=== PATIENT | female | born 1975 | race American Indian/Alaskan Native ===

== ENCOUNTER 2017-09-12 11:24 | Emergency (ER) | payer SELFPAY ==
[2017-09-12 11:39] VITALS: BP 132/87
--- NOTE | 2017-09-12 12:28 | XRay Report ---
LEFT KNEE, 3 views: History: Left knee pain. The bony architecture is intact without evidence of fracture or dislocation. No significant soft tissue abnormality is seen. IMPRESSION: Normal left knee.
--- NOTE | 2017-09-12 14:23 | Emergency Department Report ---
ED Lower Extremity HPI - General Chief Complaint: Extremity Injury, Lower Stated Complaint: LEFT KNEE PAIN Time Seen by Provider: 09/12/17 13:20 Source: patient Mode of arrival: Ambulatory Limitations: No Limitations - History of Present Illness Initial Comments: pt is a 42 y/o aaf with hx left knee pain who presents for left knee pain and swelling, x 3 days after wearing heels to function on tuesday, pt denies fall injury or trauma, pt states pain at 5/10 aching and swelling , pt remains ambulatory with pain. MD Complaint: knee injury Onset/Timin -: days(s) Injury: Knee: Left Type of Injury: other (denies injury event ) Place: street/outdoors Severity: moderate Severity scale (0 -10): 4 Improves With: nothing, other (nothing tried ) Worsens With: weight bearing, movement, palpation Context: walking Associated Symptoms: swelling, able to partially bear weight. denies: numbness , tingling - Related Data Previous Rx's Medication Instructions Recorded Last Taken Type Cyclobenzaprine [Flexeril] 10 mg PO BID PRN #20 tablet 09/12/17 Unknown Rx Naproxen [Naprosyn] 500 mg PO BID PRN #30 tablet 09/12/17 Unknown Rx Allergies Allergy/AdvReac Type Severity Reaction Status Date / Time No Known Allergies Allergy Unverified 09/12/17 11:35 ED Review of Systems ROS: Stated complaint: LEFT KNEE PAIN Other details as noted in HPI Constitutional: denies: chills, fever Eyes: denies: eye pain, eye discharge, vision change ENT: denies: ear pain, throat pain Respiratory: denies: cough, shortness of breath, wheezing Cardiovascular: denies: chest pain, palpitations Endocrine: no symptoms reported Gastrointestinal: denies: abdominal pain, nausea, diarrhea Genitourinary: denies: urgency, dysuria, discharge Musculoskeletal: joint swelling, arthralgia. denies: myalgia Skin: denies: rash, lesions Neurological: denies: headache, weakness, paresthesias Psychiatric: denies: anxiety, depression Hematological/Lymphatic: denies: easy bleeding, easy bruising ED Past Medical Hx - Past Medical History Previous Medical History?: Yes Hx of Cancer: Yes - Surgical History Past Surgical History?: Yes Additional Surgical History: hiatal hernia surgery, cervix - Social History Smoking Status: Current Every Day Smoker Substance Use Type: Alcohol, Prescribed - Medications Home Medications: Home Medications Medication Instructions Recorded Confirmed Last Taken Type Cyclobenzaprine [Flexeril] 10 mg PO BID PRN #20 tablet 09/12/17 Unknown Rx Naproxen [Naprosyn] 500 mg PO BID PRN #30 tablet 09/12/17 Unknown Rx ED Physical Exam - General Limitations: No Limitations General appearance: alert, in no apparent distress - Head Head exam: Present: atraumatic, normocephalic - Eye Eye exam: Present: normal appearance, PERRL, EOMI Pupils: Present: normal accommodation - ENT ENT exam: Present: mucous membranes moist - Neck Neck exam: Present: normal inspection - Respiratory Respiratory exam: Present: normal lung sounds bilaterally. Absent: respiratory distress - Cardiovascular Cardiovascular Exam: Present: regular rate, normal rhythm. Absent: systolic murmur, diastolic murmur, rubs, gallop - GI/Abdominal GI/Abdominal exam: Present: soft, normal bowel sounds - Rectal Rectal exam: Present: deferred - Extremities Exam Extremities exam: Present: tenderness (left knee anterior ), normal capillary refill, joint swelling. Absent: pedal edema, calf tenderness - Expanded Lower Extremity Exam Left Knee exam: Present: normal inspection, tenderness, swelling, pain w/ pronation/ supination, full knee extension. Absent: full ROM (pain with flexion ), abrasion, laceration, ecchymosis, deformity, crepidus, dislocation, erythema, effusion, posterior draw sign, pain/laxity with valgus, pain/laxity with varus Lower Leg exam: Present: normal inspection, full ROM Ankle exam: Present: normal inspection, full ROM Foot/Toe exam: Present: normal inspection, full ROM Neuro vascular tendon exam: Present: no vascular compromise. Absent: pulse deficit, abnormal cap refill, motor deficit, sensory deficit, tendon deficit, extremity cold to touch, pallor, abnormal 2-point discrimination, decreased fine /light touch, foot drop, peroneal nerve deficit, significant pain with passive ROM of distal joint Gait: Positive: observed and normal ED Course Vital Signs 09/12/17 11:35 Temperature 98.3 F Pulse Rate 95 H Respiratory 24 Rate Blood Pressure 132/87 O2 Sat by Pulse 100 Oximetry ED Lower Extremity MDM - Radiology Data Radiology results: report reviewed, image reviewed normal left knee no fracture no soft tissue abnormalities - Medical Decision Making pt is a 42 y/o aaf with hx left knee pain who presents for left knee pain and swelling, x 3 days after wearing heels to function on tuesday, pt denies fall injury or trauma, pt states pain at 5/10 aching and swelling , pt remains ambulatory with pain. knee exam no drawer no deformity no bursitis mild effusion sub patella xray normal rom intact with full knee extension pt is ambulatory to baseline, plan: aquiles, rice, nsaids and muscle relaxant tp will follow up with primary care in 2-3 days pt verbalized agreement and understanding with discharge plan. Critical care attestation.: If time is entered above; I have spent that time in minutes in the direct care of this critically ill patient, excluding procedure time. ED Disposition Clinical Impression: Knee strain Qualifiers: Encounter type: initial encounter Laterality: left Qualified Code(s): S86.912A - Strain of unspecified muscle(s) and tendon(s) at lower leg level, left leg, initial encounter Disposition: TO HOME OR SELFCARE Is pt being admited?: No Does the pt Need Aspirin: No Condition: Good Instructions: Knee Pain (ED), Knee Exercises (GEN) Prescriptions: Cyclobenzaprine [Flexeril] 10 mg PO BID PRN #20 tablet PRN Reason: Muscle Spasm Naproxen [Naprosyn] 500 mg PO BID PRN #30 tablet PRN Reason: Pain Referrals: NAKIA ROTHMAN MD [Staff Physician] - 3-5 Days Forms: Work/School Release Form(ED) Time of Disposition: 14:30
[2017-09-12] MEDS ORDERED: ULTRAM PO ONE (14:31)
== END 2017-09-12 14:54 | disposition home or self-care (01) ==
LOC: ED 11:24
DX: S76.912A Strain of unspecified muscles, fascia and tendons at thigh level, left thigh, initial encounter (principal); F17.200 Nicotine dependence, unspecified, uncomplicated; X58.XXXA Exposure to other specified factors, initial encounter; Y93.89 Activity, other specified; Y92.89 Other specified places as the place of occurrence of the external cause; Y99.8 Other external cause status
CPT/HCPCS: 99284

== ENCOUNTER 2019-10-12 13:16 | Emergency (ER) | payer SELFPAY ==
--- NOTE | 2019-10-12 16:11 | XRay Report ---
CHEST 2 VIEWS INDICATION / CLINICAL INFORMATION: Chest Pain. COMPARISON: None available. FINDINGS: SUPPORT DEVICES: None. HEART / MEDIASTINUM: No significant abnormality. LUNGS / PLEURA: No significant pulmonary or pleural abnormality. No pneumothorax. ADDITIONAL FINDINGS: No significant additional findings. IMPRESSION: 1. No acute findings. Signer Name: Wolfgang Noriega MD Signed: 10/12/2019 4:07 PM Workstation Name: [id number]
[2019-10-12 16:39] LABS: Basophils # (Auto) 0.1 K/mm3 (0.0-0.1); Basophils % (Auto) 0.8 % (0.0-1.8); Eosinophils # (Auto) 0.1 K/mm3 (0.0-0.4); Hematocrit 39.3 % (30.3-42.9); Hemoglobin 13.4 gm/dl (10.1-14.3); Lymphocytes # (Auto) 2.8 K/mm3 (1.2-5.4); Lymphocytes % (Auto) 42.4 % (13.4-35.0); Mean Corpuscular HGB Conc 34 % (30-34); Mean Corpuscular Volume 92 fl (79-97); Monocytes # (Auto) 0.5 K/mm3 (0.0-0.8); Monocytes % (Auto) 6.8 % (0.0-7.3); Platelet Count 280 K/mm3 (140-440); Red Blood Count 4.28 M/mm3 (3.65-5.03); Red Cell Distribution Width 13.3 % (13.2-15.2)
[2019-10-12 17:04] LABS: BUN/Creatinine Ratio 18; Blood Urea Nitrogen 11 mg/dL (7-17); Hemolysis Index 13
--- NOTE | 2019-10-12 19:40 | Emergency Department Report ---
ED Chest Pain HPI - General Chief Complaint: Chest Pain Stated Complaint: CHEST PAIN/SEVERE HEADACHE Time Seen by Provider: 10/12/19 19:26 Source: patient Mode of arrival: Ambulatory Limitations: No Limitations - History of Present Illness Initial Comments: 44-year-old -[place] female to the emergency for chest pain/tightness to the left side that radiated to her left shoulder and neck. Patient reported some nausea with shortness of breath. Patient reports that the chest pain as intermittently. Patient states that the chest pain that started on Tuesday. Patient also complains of a migraine. Patient states that she suffers from migraines and has taken her migraine medication on Tuesday but did not taken on Tuesday. Patient also reports that she's been really stressed out at work. Patient feels that she's had an anxiety attack but is not getting any better. Patient denies any suicidal or homicidal ideation. Patient does report she feels,low and depressed. Patient does have a primary care provider but has not followed up since February 2019. Patient has a past medical history of lower back pain migraines. Patient reports that she was taking amitriptyline for her anxiety but has only taken her amitriptyline 50 mg 2 days ago has ran out. Denies any chest pain at this moment. Reports her migraines is 7 out of 8. MD Complaint: chest pain, other (migraine) Onset/Timin Pain Location: substernal Pain Radiation: LUE, neck Severity: moderate Severity scale (0 -10): 7 (Migraine) Quality: heaviness Consistency: intermittent Worsens With: nothing Treatments Prior to Arrival: none - Related Data On Oral Contraceptives: No Previous Rx's Medication Instructions Recorded Last Taken Type Cyclobenzaprine [Flexeril] 10 mg PO BID PRN #20 tablet 09/12/17 Unknown Rx Naproxen [Naprosyn] 500 mg PO BID PRN #30 tablet 09/12/17 Unknown Rx Allergies Allergy/AdvReac Type Severity Reaction Status Date / Time No Known Allergies Allergy Unverified 09/12/17 11:35 Heart Score - HEART Score History: Slightly suspicious EKG: Normal Age: 45-65 Risk factors: 1-2 risk factors Troponin: < normal limit HEART Score: 2 ED Review of Systems ROS: Stated complaint: CHEST PAIN/SEVERE HEADACHE Other details as noted in HPI ED Past Medical Hx - Past Medical History Previous Medical History?: Yes Hx Seizures: Yes - Surgical History Past Surgical History?: No Additional Surgical History: hiatal hernia surgery, cervix - Social History Smoking Status: Never Smoker Substance Use Type: Alcohol - Medications Home Medications: Home Medications Medication Instructions Recorded Confirmed Last Taken Type Cyclobenzaprine [Flexeril] 10 mg PO BID PRN #20 tablet 09/12/17 Unknown Rx Naproxen [Naprosyn] 500 mg PO BID PRN #30 tablet 09/12/17 Unknown Rx ED Physical Exam - General Limitations: No Limitations General appearance: alert, in no apparent distress - Head Head exam: Present: atraumatic, normocephalic - Eye Eye exam: Present: normal appearance - ENT ENT exam: Present: mucous membranes moist - Neck Neck exam: Present: normal inspection - Respiratory Respiratory exam: Present: normal lung sounds bilaterally. Absent: respiratory distress - Cardiovascular Cardiovascular Exam: Present: regular rate, normal rhythm. Absent: systolic murmur, diastolic murmur, rubs, gallop - GI/Abdominal GI/Abdominal exam: Present: soft, normal bowel sounds - Neurological Exam Neurological exam: Present: alert, oriented X3, normal gait - Expanded Neurological Exam Expanded Patient oriented to: Present: person, place, time Cranial nerves: EOM's Intact: Normal, Gag Reflex: Normal, Tongue Deviation: Normal, Nystagmus: Normal, Facial Sensation: Normal, Facial Palsy with Forehead Movement: Normal, Facial Palsy without Forehead Movement: Normal Cerebellar function: Finger to Nose: Normal, Heel to Tenorio: Normal, Romberg: Normal Upper motor neuron: Fritz Neglect: Normal, Pronator Drift: Normal, Sensory Extinction: Normal Sensory exam: Upper Extremity Light Touch: Normal, Upper Extremity Pin Prick: Normal, Upper Extremity Temperature: Normal, UE 2 Point Discrimination: Normal, Lower Extremity Light Touch: Normal, Lower Extremity Pin Prick: Normal, Lower Extremity Temperature: Normal, LE 2 Point Discrimination: Normal Motor strength exam: RUE: 4, LUE: 4, RLE: 4, LLE: 4 Best Eye Response ([place]): (4) open spontaneously Best Motor Response ([place]): (6) obeys commands Best Verbal Response ([place]): (5) oriented [place] Total: 15 - Psychiatric Psychiatric exam: Present: normal affect, normal mood - Skin Skin exam: Present: warm, dry, intact, normal color. Absent: rash ED Course Vital Signs 01/17/20 13:26 Temperature 98.2 F Pulse Rate 89 Respiratory 12 Rate Blood Pressure 130/90 [Left] O2 Sat by Pulse 100 Oximetry ED Medical Decision Making - Lab Data Result diagrams: 10/12/19 16:09 10/12/19 16:09 - Radiology Data Radiology results: report reviewed Patient: HILDA KELSEY MR#: [id number] : 1975 Acct:[id number] Age/Sex: 44 / F ADM Date: 10/12/19 Loc: ED Attending Dr: Ordering Physician: Fanta Soni MD Date of Service: 10/12/19 Procedure(s): XR chest routine 2V Accession Number(s): [id number] cc: Fanta Soni MD Fluoro Time In Minutes: CHEST 2 VIEWS INDICATION / CLINICAL INFORMATION: Chest Pain. COMPARISON: None available. FINDINGS: SUPPORT DEVICES: None. HEART / MEDIASTINUM: No significant abnormality. LUNGS / PLEURA: No significant pulmonary or pleural abnormality. No pneumothorax. ADDITIONAL FINDINGS: No significant additional findings. IMPRESSION: 1. No acute findings. Signer Name: Wolfgang Noriega MD Signed: 10/12/2019 4:07 PM Workstation Name: [id number] Transcribed By: ANNA Dictated By: Wolfgang Noriega MD Electronically Authenticated By: Wolfgang Noriega MD Signed Date/Time: 10/12/191606 DD/ 06 TD/TT: - Medical Decision Making 44-year-old -[place] female to the emergency for chest pain/tightness to the left side that radiated to her left shoulder and neck. Patient reported some nausea with shortness of breath. Patient reports that the chest pain as intermittently. Patient states that the chest pain that started on Tuesday. Iker joseph also complains of a migraine. Patient states that she suffers from migraines and has taken her migraine medication on Tuesday but did not taken on Tuesday. Patient also reports that she's been really stressed out at work. Patient feels that she's had an anxiety attack but is not getting any better. Patient denies any suicidal or homicidal ideation. Patient does report she feels,low and depressed. Patient does have a primary care provider but has not followed up since February 2019. Patient has a past medical history of lower back pain migraines. Patient reports that she was taking amitriptyline for her anxiety but has only taken her amitriptyline 50 mg 2 days ago has ran out. D enies any chest pain at this moment. Reports her migraines is 7 out of 8. EKG is normal, chest x-ray shows no acute abnormalities, 2 negative troponins, neuro exams intact without any signs of deficits. Discussed the patient she should follow up with her primary care provider to be evaluated for anxiety and depression. Also discussed the patient that she can follow up with her primary care provider in regards to her intermittent chest pain. Patient verbalized understanding. Critical care attestation.: If time is entered above; I have spent that time in minutes in the direct care of this critically ill patient, excluding procedure time. ED Disposition Clinical Impression: Atypical chest pain, Anxiety, Depressed mood Disposition: DC-01 TO HOME OR SELFCARE Is pt being admited?: No Does the pt Need Aspirin: No Condition: Stable Instructions: Chest Pain (ED) Additional Instructions: Please follow up with her primary care provider in the next 2-3 days. Referrals: PRIMARY CAREMD [Primary Care Provider] - 3-5 Days Forms: Work/School Release Form(ED)
[2019-10-12] MEDS ORDERED: METOCLOPRAMIDE 10 MG/2 ML INJ IV ONE (19:47)
[2019-10-12] MEDS ORDERED: KETOROLAC 30 MG/1 ML INJ IV ONE (19:47)
[2019-10-12 21:01] VITALS: BP 142/91
== END 2019-10-12 20:59 | disposition home or self-care (01) ==
LOC: ED 13:16
DX: F41.9 Anxiety disorder, unspecified (principal); R11.0 Nausea; R45.89 Other symptoms and signs involving emotional state; Z79.899 Other long term (current) drug therapy
CPT/HCPCS: 36415; 71046; 80048; 84484; 85025; 93005; 93010; 96374; 96375; 99284; J1885; J2765